=== PATIENT | male | born 1955 | race African-American/Black ===

== ENCOUNTER 2017-05-15 08:05 | Day surgery (SDC) | payer OTHER ==
[2017-05-15] MEDS ORDERED: PROPOFOL 60 ML (09:51)
== END 2017-05-15 10:54 | disposition home or self-care (01) ==
LOC: GIL 08:05
DX: K29.60 Other gastritis without bleeding (principal); K64.8 Other hemorrhoids; J45.909 Unspecified asthma, uncomplicated
CPT/HCPCS: 43239; 87081; 88305

== ENCOUNTER → 2018-01-01 | Outpatient (CLI) | payer OTHER | END | disposition home or self-care (01) | LOC: HKI 15:08 | DX: M17.11 Unilateral primary osteoarthritis, right knee (principal) | CPT/HCPCS: 73564; 73564-RT ==